=== PATIENT | female | born 1950 | race Caucasian/White ===

== ENCOUNTER 2023-12-16 09:38 | Outpatient (CLI) | payer MEDICARE, OTHER | END 2023-12-16 23:59 | disposition home or self-care (01) | LOC: RAD 09:38 | PROVIDERS: ATTEND Internal Medicine Interventional Cardiology | DX: Z13.6 Encounter for screening for cardiovascular disorders (principal); E78.5 Hyperlipidemia, unspecified; R53.83 Other fatigue; I95.1 Orthostatic hypotension; D64.9 Anemia, unspecified | CPT/HCPCS: 75571 ==

== ENCOUNTER 2024-09-06 14:41 | Inpatient (IN) | payer MEDICARE, OTHER ==
[~2024-09-06] VITALS: Ht 165.1 cm; Wt 65.0 kg
--- NOTE | 2024-09-06 14:52 | Physician Documentation ---
History of Present Illness ~ Chief Complaint: Weakness Stated Complaint: UPPER GI BLEED Time Seen by MD: 14:44 OK to notify your PCP?: No Source: patient (12), RN/MD (Transferring facility) HPI Patient is sent to us as a transfer from [facility] in [facility]. She had presented there with a complaint of black stool starting a couple of days ago, not accompanied by any abdominal pain, although the patient does feel fatigued and weak. She had reported some orthostatic dizziness and an episode of vomiting yesterday which did not contain any hematemesis. Patient does have a history of GI bleed a couple of times in the past and has had both endoscopy and capsular endoscopy, I am unaware of the outcome, but the patient's GI bleed was felt to be secondary to anti-inflammatory intake. She no longer takes NSAIDs, and is no longer taking a PPI. She also notes that she had a hysterectomy about six weeks ago. At the facility she was found to have a hemoglobin of 5.9 as well as melena on examination. She has received Protonix and 2 units packed red cells prior to her arrival here, which improved her heart rate and blood pressure which had been a little soft on her arrival. Patient transferred because they have no GI capability, and can undergo endoscopy at our facility. Labs from the prior facility: WBC 6.2 hemoglobin 5.9 hematocrit 16.8 platelets 200 Sodium 141, potassium 3.7, chloride 110, CO2 18, glucose 118, creatinine 0.65, total bilirubin 0.28 PT INR 12.8/1 Medication Reconciliation Allergies: Coded Allergies: NSAIDS (Non-Steroidal Anti-Inflamma (Verified Allergy, Severe, LOWER GI BLEED, 09/06/24) Miscellaneous Medications Home Med List (No Home Medications), (Reported) Past Medical History Past Medical History: GI Bleed Smoking Status: Never smoker Alcohol Use: Occasionally Drug Use: none Review of Systems All Other Systems at this time: Reviewed and Negative Physical Exam Physical Exam General: Pt is awake, alert, oriented x4 in no acute distress and well appearing. Head: Normocephalic and atraumatic. Eyes: Conjunctiva normal. ENT: Mucous membranes moist. Neck: Supple. Chest: Clear to auscultation bilaterally, without rales, rhonchi, or wheezes. There is no accessory muscle use or retractions. Cardiac: Regular rate and rhythm without murmurs, gallops or rubs. Palpation of the chest wall is normal. Abd: Soft, nondistended, nontender, with normoactive bowel sounds. No guarding or rebound. Rectal: Deferred as it was performed at the outside facility and melena was found according to the provider, with whom I spoke Extremities: Within normal limits without cyanosis, clubbing, or edema. Skin: Stokes, warm and dry with no significant rash appreciated. Neuro: Cranial nerves II-XII grossly intact. The gait is normal. Progress Results/Orders Results/Orders Orders - JO GASTON MD Page Hospitalist (09/06/24 15:01) Fill Out Med Reconciliation (09/06/24 15:01) Completed Orders - JO GASTON MD Type And Screen (09/06/24 14:49) Cbc/Diff (09/06/24 14:49) Medications Received in ER Medications (Trade) Dose Ordered Sig/Selin Route PRN Reason Start Time Stop Time Status Last Admin Dose Admin Sodium Chloride 1,000 ml @ 100 mls/hr Q10H IV 09/06/24 16:10 09/06/24 16:25 100 MLS/HR Vital Signs 09/06/24 09/06/24 14:55 14:59 Temp 98.5 Pulse 64 Resp 14 18 B/P (MAP) 110/67 Pulse Ox 98 O2 Flow Rate 0 Laboratory Tests Test 09/06/24 15:56 White Blood Count 5.1 Red Blood Count 2.56 L Hemoglobin 8.5 L Hematocrit 24.7 L Mean Corpuscular Volume 96.7 Mean Corpuscular Hemoglobin 33.2 H Mean Corpuscular Hemoglobin Concent 34.3 Red Cell Distribution Width 13.8 Platelet Count 149 Mean Platelet Volume 8.0 Neutrophils (%) (Auto) 62.8 Lymphocytes (%) (Auto) 29.8 Monocytes (%) (Auto) 5.3 Eosinophils (%) (Auto) 1.5 Basophils (%) (Auto) 0.6 Neutrophils # (Auto) 3.2 Lymphocytes # (Auto) 1.5 Monocytes # (Auto) 0.3 Eosinophils # (Auto) 0.1 Basophils # (Auto) 0.0 CBC Comment Consults/PCP Consults/PCP : Time Call Requested: 15:01 Consult Reason/Comments: Hospitalist Additional Comment 15:12 Case d/w Dr. Wilkinson, who will admit, and who agrees to call Dr. Angeles from GI for consultation Medical Decision Making Additional Information Patient with a history of recurrent GI bleed, no longer on NSAIDs but with rece nt physiologic stress from surgery. Presumed to be upper GI source as she is having melena. Vital signs are stable at this time, we will recheck hemoglobin and type and screen, admit to hospitalist service for further evaluation and management and GI consultation for endoscopy. Departure Time of Disposition: 15:00 Admitted to Inpatient Unit: yes, to hospitalist Impression: Primary Impression: Upper GI hemorrhage Additional Impression: Anemia Qualified Codes: D64.9 - Anemia, unspecified Condition: Fair Referrals: NO PRIMARY CARE PROVIDER (PCP) Education Educated: Patient Educated regarding: diagnosis, treatment Signature Scribe Signature: Attestation: JO GASTON MD Sep 06, 2024 14:52
[2024-09-06] MEDS ORDERED: NO HOME MEDS (15:06)
[2024-09-06 16:06] LABS: MEAN PLATELET VOLUME 8.0 FL (7.4-10.4); RED CELL DISTRIBUTION WIDTH 13.8 % (11.5-14.5)
[2024-09-06] MEDS ORDERED: magnesium sulf-water 2g/50mL 50 ML IV PRN (16:10)
[2024-09-06] MEDS ORDERED: ondansetron/PF 4mg/2ml inj IV PRN (16:10)
[2024-09-06] MEDS ORDERED: potassium Cl 20 mEq SR tablet PO PRN (16:10)
[2024-09-06] MEDS ORDERED: potassium Cl 40MEQ/1/2NS 520ml 520 ML IV PRN (16:10)
[2024-09-06] MEDS ORDERED: magnesium Cl slow-release 64mg tablet PO PRN (16:10)
[2024-09-06] MEDS ORDERED: magnesium sulf-water 4G/100mL 100 ML IV PRN (16:10)
[2024-09-06] MEDS: normal saline 1000ml 1,000 ML IV SCH (16:25)
--- NOTE | 2024-09-06 18:28 | HISTORY AND PHYSICAL ---
History & Physical Providers to CC ~ History of Present Illness Reason for Admit\Complaint: Black stools History of Present Illness Patient is a 74 years old female who has been taken has a transfer from [facility] in [place] where she initially presented with complain of black stool x2 days. Patient states to me that it started yesterday when she noted some black stool and once again this morning she had melena. Patient states she has been feeling weak. She reported she had similar issues in 2020 and at that time she was having NSAIDs and had a colonoscopy endoscopy and a capsule endoscopy. Since then she has not been using any NSAIDs. She denies having any nausea vomiting or abdominal pain. Patient denies having any fever chills dysuria frequency urgency hematuria or bright red blood per rectum. She denies having any focal neurological symptoms In the ER patient is noted to have a hemoglobin of 5.9. She has been transfused 2 units of packed RBCs. Patient is being admitted for further evaluation and treatment. Allergies: Coded Allergies: NSAIDS (Non-Steroidal Anti-Inflamma (Verified Allergy, Severe, LOWER GI BLEED, 09/06/24) Home Medications Home Medications Active Reported No Home Medications (Home Med List) Each Past Medical History Past Medical History Patient reports none except history of GI bleed due to NSAID as noted above Past Surgical History Surgical History Comment None Family History Family History: Family history was reviewed; no changes noted. Past Social History Social History Comment Patient reports she is a light drinker, does not smoke or do any drugs. Health Maintenance Health Maintenance Not current on her immunizations ROS ROS All other systems are reviewed and are negative except for as mentioned in HPI. Exam Vitals: Vital Signs Date Time Temp Pulse Resp B/P (MAP) Pulse Ox O2 Delivery O2 Flow Rate FiO2 09/06/24 16:24 65 14 115/87 (96) 100 0 09/06/24 14:55 98.5 General: Awake alert cooperative in no acute distress HEENT: Normocephalic atraumatic pupils round reactive to light and accommodation, extraocular movements intact, sclera anicteric, conjunctiva pinkish, moist oral mucosa, no rash or ulcers. Neck: Supple, no JVD, trachea midline, no lymphadenopathy. Chest: Clear to auscultation, no wheezes crackles or rhonchi. Cardiovascular: Regular rate rhythm, no murmur gallop or rub. Abdomen: Soft nontender, no organomegaly. Extremities: No cyanosis clubbing or edema. Central Nervous System: Nonfocal. Moves all four extremities Musculoskeletal: No joint swelling or deformities noted. Skin: No rash or ulcers noted. Diagnostic Data Last Recorded Lab Results: 09/06/24 1556 Additional Plan Patient is a 74 years old female presented to the ER for evaluation of melena. 1. Melena: Patient reports she has not been using any NSAIDs. We will start her on IV Protonix. Requested GI consultation by Dr. Toscano. 2. Anemia due to chronic GI bleed: Patient has been transfused 2 units of packed RBCs. We will continue monitor H and HP 3. Code status: She wishes to be full code 4. GI prophylaxis: Protonix as noted above 5. DVT prophylaxis: SCDs and early ambulation. Avoid pharmacological anticoagulation due to GI bleed. Date of Service: Sep 06, 2024 Billing Provider: RADHA JOHNSTON MD Common Visit Codes: 44835-[id number] INP/OBS CARE (MOD) RADHA JOHNSTON MD Sep 06, 2024 18:28
[2024-09-06] MEDS: K and/or MAG REPLACEMENT MC SCH (20:00)
[2024-09-06 20:56] VITALS: RESP 15; O2SAT 100
[2024-09-06 21:22] VITALS: BP 92/55; PULSE 77; RESP 15; TEMP 97.1; O2SAT 100
[2024-09-06 22:00] VITALS: BP 100/60; PULSE 69; RESP 15; TEMP 97; O2SAT 98
[2024-09-06 23:05] VITALS: BP 100/60; PULSE 69; RESP 15; TEMP 97; O2SAT 98
[2024-09-07] VITALS (16 sets, daily range): BP systolic 76–92; BP diastolic 30–55; PULSE 65–85; RESP 12–20; TEMP 97.1–98; O2SAT 94–100
[2024-09-07 06:47] LABS: MEAN PLATELET VOLUME 8.1 FL (7.4-10.4); RED CELL DISTRIBUTION WIDTH 13.9 % (11.5-14.5)
[2024-09-07 07:03] LABS: CREATININE 0.53 MG/DL (0.40-0.90); TOTAL CARBON DIOXIDE 24.1 MMOL/L (24-32); eCRCL 85 ML/MIN; eGFR > 90 ML/MIN
--- NOTE | 2024-09-07 08:56 | PROGRESS NOTE ---
Daily Progress Note Providers to CC ~ Antibiotic Timeout Antibiotic Ordered?: No Subjective Patient continues to feel weak. Objective Vital Signs Date Time Temp Pulse Resp B/P (MAP) Pulse Ox O2 Delivery O2 Flow Rate FiO2 09/07/24 06:00 98.0 65 16 90/50 (63) 95 Room Air 09/06/24 16:24 0 Result Diagram: 09/07/24 0528 09/07/24 05 General: Generalized weakness, A&Ox 3, NAD HEENT: Normocephalic, PERRLA Neck: Supple, trachea midline, no JVD Chest: Clear to auscultation bilaterally Cardiovascular: RRR, S1&S2 GI: Soft and nontender Extremities: No cyanosis/clubbing/or edema PATIENT SCHEDULER: CN II-XII intact, no focal deficits Musculoskeletal: No joint swelling or deformities Other Results Medications reviewed Problem\Assessment\Plan Patient is a 74 years old female presented to the ER for evaluation of melena. Patient reports she has not been using any NSAIDs. * GIB: -transfused 2 units of PRBCs. Consulted GI Dr. Hollins . Continue monitor H/H * Hypotension- bolus fluids for hypotension * Code status: Full Code * GI prophylaxis: Protonix * Hypokalemia: Replace per protocol * DVT prophylaxis: SCDs Date of Service: Sep 07, 2024 Billing Provider: RADHA JOHNSTON MD Common Visit Codes: 94035-[id number] INP/OBS CARE(HIGH) RADHA JOHNSTON MD Sep 07, 2024 08:56
[2024-09-07] MEDS: potassium Cl 20 mEq SR tablet PO PRN (08:57)
[2024-09-07] MEDS ORDERED: LIDOcaine 2% (20mg/ml) 5ml vial ONE (10:37)
[2024-09-07] MEDS: PEG 3350/Na sulf,bicarb,Cl/KCl oral sol 4 liter bottle PO ONE (15:17)
[2024-09-08] VITALS (20 sets, daily range): BP systolic 85–106; BP diastolic 33–60; PULSE 61–83; RESP 11–20; TEMP 96.4–98.8; O2SAT 95–100
[2024-09-08 05:51] LABS: MEAN PLATELET VOLUME 8.1 FL (7.4-10.4); RED CELL DISTRIBUTION WIDTH 14.5 % (11.5-14.5)
[2024-09-08 06:18] LABS: CREATININE 0.37 MG/DL (0.40-0.90); TOTAL CARBON DIOXIDE 20.7 MMOL/L (24-32); eCRCL 122 ML/MIN; eGFR > 90 ML/MIN
[2024-09-08] MEDS: midodrine 5mg tablet PO SCH (10:19)
--- NOTE | 2024-09-08 10:56 | PROGRESS NOTE ---
Daily Progress Note Providers to CC ~ Antibiotic Timeout Antibiotic Ordered?: No Subjective No acute events overnight. Patient examined at bedside. No new complaints, not in acute distress. Patient denies chest pain, sob, palpitations, abdominal pain, n/v/d. Colonoscopy today. Hypotensive, labs notable for Hgb 6.8g/dL, received 1 unit PRBC today. 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 Patient reports she has not been using any NSAIDs. Assessment GIB Normocytic anemia Hypotension -transfused 2 units of PRBCs. Consulted GI Dr. Hollins -09/08: EGD yesterday without active bleeding, colonoscopy today without active bleeding, Hgb 6.8 Plan -09/08: 1 additional unit PRBC today, colonoscopy today, midodrine and bolus fluids for hypotension -follow repeat H/H Code status: Full Code GI prophylaxis: Protonix DVT prophylaxis: SCDs Date of Service: Sep 08, 2024 Billing Provider: KARLIE GARCES Common Visit Codes: [id number] INP/OBS CARE(HIGH) KARLIE GARCES Sep 08, 2024 10:56
[2024-09-08] MEDS: normal saline 500ml IV soln 500 ML IV ONE (11:00)
[2024-09-08] MEDS ORDERED: propofol inj 20 ML IV ONE ×2 (11:57)
[2024-09-08 16:05] LABS: MEAN PLATELET VOLUME 7.8 FL (7.4-10.4); RED CELL DISTRIBUTION WIDTH 15.1 % (11.5-14.5)
--- NOTE | 2024-09-08 18:22 | PATHOLOGY REPORT ---
[facility] [address] [place] [address] SURGICAL PATHOLOGY REPORT CaseNumber: [id number] Surgeon:Sukhdeep Hollins M.D. CLINICAL INFORMATION CLINICAL INFORMATION: Melena. DIAGNOSIS DIAGNOSIS: A.STOMACH, ANTRUM; BIOPSY - MILD CHRONIC INFLAMMATION. - NEGATIVE FOR INTESTINAL METAPLASIA. - NEGATIVE FOR H. PYLORI BY IMMUNOPEROXIDASE STUDY. - NEGATIVE FOR DYSPLASIA/NEOPLASIA. DIAGNOSIS: B.SMALL BOWEL, SECOND PORTION DUODENUM; BIOPSY - NO SIGNIFICANT HISTOLOGIC ABNORMALITY. MICROSCOPIC DESCRIPTION A. STOMACH, ANTRUM MICROSCOPIC DESCRIPTION: One H&E stained slide from part A is examined. Present are two pieces of gas tric antral mucosa. One piece has some specialized glands suggesting transitional zone. There is a mi ld chronic inflammatory infiltrate composed predominantly of lymphocytes. There is no significant act suad inflammation and no intestinal metaplasia by routine light microscopy. Immunoperoxidase study for H. pylori does not highlight organisms. There is no dysplasia/neoplasia. B. SMALL BOWEL, SECOND PORTION DUODENUM MICROSCOPIC DESCRIPTION: One slide from part B is examined. Present is small intestinal mucosa with n ormal villous architecture. The villi are tall and slender. There is no increased intraepithelial lym phocytes or collagen plate thickness. There is no active inflammation, granuloma, or neoplasia. (st) GROSS DESCRIPTION A. STOMACH, ANTRUM GROSS DESCRIPTION: Received in a container of formalin labeled with the patients name, number, and "a ntrum BX" are two pieces of justice tissue 0.3 and 0.4 cm. The specimen is entirely submitted as A1. The time at which the specimen was removed was 1055. The time at which the specimen was placed in formal in was 1056. (ohb) B. SMALL BOWEL, SECOND PORTION DUODENUM GROSS DESCRIPTION: Received in a container of formalin labeled with the patient's name, number, and " second portion of duodenum" are two pieces of justice tissue 0.1 and 0.2 cm. The specimen is entirely sub mitted as B1. The time at which the specimen was removed was 1054. The time at which the specimen was placed in formalin was 1054. (meb) Electronically signed by: Maxwell Callahan M.D. 09/08/2024 5:41:00 PM
[2024-09-09 05:47] LABS: MEAN PLATELET VOLUME 7.9 FL (7.4-10.4); RED CELL DISTRIBUTION WIDTH 15.1 % (11.5-14.5)
[2024-09-09 06:00] VITALS: BP 110/66; PULSE 65; RESP 14; TEMP 96.8; O2SAT 96
[2024-09-09 06:06] LABS: CREATININE 0.56 MG/DL (0.40-0.90); TOTAL CARBON DIOXIDE 24.7 MMOL/L (24-32); eCRCL 81 ML/MIN; eGFR > 90 ML/MIN
[2024-09-09] MEDS ORDERED: PANT40TA54 PO (07:03)
[2024-09-09] MEDS ORDERED: MIDO5TAB4 PO (07:03)
[2024-09-09 08:00] VITALS: RESP 14; O2SAT 96
[2024-09-09] MEDS ORDERED: FER325T PO (08:54)
[2024-09-09 09:50] LABS: % IRON SATURATION 12 % (11-46)
[2024-09-09 10:00] VITALS: BP 98/57; PULSE 80; RESP 16; TEMP 98.2; O2SAT 96
--- NOTE | 2024-09-09 11:07 | PATHOLOGY REPORT ---
[facility] [address] [place] [address] SURGICAL PATHOLOGY REPORT CaseNumber: [id number] Surgeon:uSkhdeep Hollins M.D. CLINICAL INFORMATION CLINICAL INFORMATION: Melena, iron deficiency anemia secondary to chronic blood loss, EGD non-diagnos tic. DIAGNOSIS DIAGNOSIS: A.POLYP, ASCENDING COLON, BIOPSY - BENIGN HYPERPLASTIC POLYP DIAGNOSIS: B.POLYP, SIGMOID COLON, BIOPSIES X 3 - BENIGN HYPERPLASTIC POLYP MICROSCOPIC DESCRIPTION A. POLYP, ASCENDING COLON, BIOPSY MICROSCOPIC DESCRIPTION: Reviewed is a single H&E-stained slide showing sections and levels of a april ected polypoid portion of colonic mucosa involved by hyperplastic changes. No serrated, dysplastic, or neoplastic features are identified. B. POLYP, SIGMOID COLON, BIOPSIES X 3 MICROSCOPIC DESCRIPTION: Reviewed is a single H&E-stained slide showing serial sections and levels of three polypoid fragments of colonic mucosa. There are areas involved by hyperplastic changes. There are no dysplastic or neoplastic features. GROSS DESCRIPTION A. POLYP, ASCENDING COLON, BIOPSY GROSS DESCRIPTION: Received in a container of formalin labeled with the patient's name, number, and " descending colon polyp" is a 1.1 x 0.9 x 0.1 cm piece of justice tissue. The specimen is sectioned. The specimen is entirely submitted as A1. The time at which the specimen was removed was 1159. The time a t which the specimen was placed in formalin was 1200. B. POLYP, SIGMOID COLON, BIOPSIES X 3 GROSS DESCRIPTION: Received in a container of formalin labeled with the patient's name, number, and " sigmoid polyp" are 3 irregularly shaped pieces of justice tissue 0.3-1.7 x 0.3 x 0.3. The specimen is ent irely submitted as B1. The time at which the specimen was removed was 1153. The time at which the spe cimen was placed in formalin was 1155. Electronically signed by: Jake Montenegro M.D. 09/09/2024 10:35:00 AM
--- NOTE | 2024-09-09 13:39 | DISCHARGE SUMMARY ---
Discharge Summary Providers to CC ~ Discharge Summary Admission Diagnosis: GIB, anemia Hospital Course DATE OF ADMISSION: 09/06/24 DATE OF DISCHARGE: 09/09/24 Discharge Diagnosis\\Comment: GIB NICK 2/2 GIB Normocytic anemia Hypotension Operations\\Procedures: EGD Colonoscopy Consultants: Neurosurgical Nurse Sukhdeep Bean Complications: None Condition on DC: Stable New Medications: Ferrous Sulfate (Ferrous Sulfate) 325 Mg (65 Mg Iron) Tablet 1 TAB PO DAILY for 90 Days, #90 TAB 0 Refills Pantoprazole Sodium (Pantoprazole Sodium) 40 Mg Tablet.dr 40 MG PO DAILY for 30 Days, #30 TAB.SR Midodrine HCl (Midodrine HCl) 5 Mg Tablet 10 MG PO TID@1000,1400,1800 for 30 Days, #90 TAB Continued Medications: Home Med List (No Home Medications) Each Discharge Summary: History of Present Illness From H&P: "Patient is a 74 years old female who has been taken has a transfer from [facility] in [place] where she initially presented with complain of black stool x2 days. Patient states to me that it started yesterday when she noted some black stool and once again this morning she had melena. Patient states she has been feeling weak. She reported she had similar issues in 2020 and at that time she was having NSAIDs and had a colonoscopy endoscopy and a capsule endoscopy. Since then she has not been using any NSAIDs. She denies having any nausea vomiting or abdominal pain. Patient denies having any fever chills dysuria frequency urgency hematuria or bright red blood per rectum. She denies having any focal neurological symptoms. In the ER patient is noted to have a hemoglobin of 5.9. She has been transfused 2 units of packed RBCs. Patient is being admitted for further evaluation and treatment." Hospital Course Case was consulted with GI Dr. Hollins and patient underwent EGD on 09/07/24 with findings of normal esophagus/stomach/duodenal bulb and second portion of the duodenum, without evidence of active bleeding and colonoscopy on 09/08/24 without evidence of active bleeding. Polyps in sigmoid colon and descending colon were biopsied. Serial hemogram indicated downtrend of Hgb to less than 7g/dL hence the patient received additional 1 unit of PRBC. Additional lab findings were consistent with iron-deficiency anemia. Hemolysis unlikely as t.bili is normal. Patient was treated with iron supplement. Patient did not experience further complications throughout the entire hospital stay and remained clinically and hemodynamically stable. Patient was seen and examined on the day of discharge. On day of discharge, vss and labs notable for uptrending H/H. All labs, diagnostic workups, discharge plan discussed with patient in details during visit before discharge. All questions and concerns answered to the best of my professional knowledge. Patient is to be discharged to home to self and to follow-up with PCP, Dr. Hollins, and her management development specialist within 2 weeks. 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
== END 2024-09-09 13:06 | disposition home or self-care (01) | DRG 393 ==
LOC: ER 14:42 → ED HOLD 16:11 → ORTHO 4S 19:15
PROVIDERS: ADMIT Internal Medicine; ATTEND Internal Medicine
PROC: 0DB68ZX Excision of Stomach, Via Natural or Artificial Opening Endoscopic, Diagnostic (ICD-10-PCS; 2024-09-07)
PROC: 0DB98ZX Excision of Duodenum, Via Natural or Artificial Opening Endoscopic, Diagnostic (ICD-10-PCS; principal; 2024-09-07 10:37)
PROC: 0DBM8ZZ Excision of Descending Colon, Via Natural or Artificial Opening Endoscopic (ICD-10-PCS; 2024-09-08)
PROC: 0DBN8ZZ Excision of Sigmoid Colon, Via Natural or Artificial Opening Endoscopic (ICD-10-PCS; 2024-09-08)
PROC: 30233N1 Transfusion of Nonautologous Red Blood Cells into Peripheral Vein, Percutaneous Approach (ICD-10-PCS; 2024-09-08)
DX: K63.5 Polyp of colon (principal); E43 Unspecified severe protein-calorie malnutrition; D62 Acute posthemorrhagic anemia; D12.5 Benign neoplasm of sigmoid colon; D12.4 Benign neoplasm of descending colon; I95.9 Hypotension, unspecified; Z88.6 Allergy status to analgesic agent; Z68.23 Body mass index [BMI] 23.0-23.9, adult
CPT/HCPCS: 36415; 36430; 43239; 45385; 80048; 82247; 82728; 83540; 83550; 83735; 85025; 85027; 86885; 86900; 86901; 86920; 87081; 97161; 97530; 99285; A4620; C1889; G0378; J2003; J2470; J2704; J3490; J7030; J7040; P9016

== ENCOUNTER 2024-10-14 10:27 | Inpatient (IN) | payer MEDICARE, OTHER ==
[~2024-10-14] VITALS: Ht 160 cm; Wt 59.0 kg
[~2024-10-14 10:27] MED LIST: FER325T PO; MIDO5TAB4 PO; NO HOME MEDS; PANT40TA54 PO
--- NOTE | 2024-10-14 10:32 | Physician Documentation ---
History of Present Illness ~ Stated Complaint: GI BLEED Time Seen by MD: 10:32 Source: patient, EMS, EMS notes reviewed, old records Mode of Arrival: EMS Exam Limitations: no limitations HPI Chief Complaint: Caveat: Independent Historians: History of Present Illness: Review of systems: All systems were reviewed and are negative except for what is indicated in the history of present illness. Past Medical History: Past Surgical History: Social History: Medications: Reviewed as documented Nursing Notes Allergies: Reviewed as documented in Nursing Notes Medication Reconciliation Allergies: Coded Allergies: NSAIDS (Non-Steroidal Anti-Inflamma (Verified Allergy, Severe, LOWER GI BLEED, 10/14/24) Scheduled Ferrous Sulfate (Ferrous Sulfate), 1 TAB PO DAILY Pantoprazole Sodium (Pantoprazole Sodium), 40 MG PO DAILY Discontinued Medications Home Med List (No Home Medications), (Reported) Discontinued Reason: patient no longer taking Midodrine HCl (Midodrine HCl), 10 MG PO TID@1000,1400,1800 Discontinued Reason: patient no longer taking Past Medical History Past Medical History: GI Bleed Alcohol Use: Occasionally Drug Use: none Review of Systems All Other Systems at this time: Reviewed and Negative ROS Patient denies any other acute symptoms other than above. All other systems are negative Physical Exam Vital Signs: RN Vital Signs have been reviewed: Yes Pulse Oximetry Reflects: adequate oxygenation Physical Exam General Appearance: No distress HEENT: Normal OP, moist oral mucosa, PERRL, EOMI Neck: supple, normal ROM, trachea midline Pulmonary: No respiratory distress, CTA, BS equal Cardiac: RRR, no murmur, rub or gallop, GI: nondistended, soft, nontender, normal bowel sounds, no guarding, no rebound Rectal: Extremities: normal ROM, no swelling, non-tender Skin: intact, dry, warm, no rashes Neuro: AAOx3, speech is clear, no focal motor weakness Psych: normal affect, good eye contact, no apparent hallucination, normal speech Progress Results/Orders Results/Orders Orders - MICAH MAZARIEGOS MD Urinalysis, Cult If Indicated (10/14/24 10:32) Type And Screen (10/14/24 10:32) Nothing By Mouth (10/14/24 Dinner) Monitor (10/14/24 10:32) Saline Lock (10/14/24 10:32) Iv Ppi (10/14/24 10:32) 2 Large Bore Ivs (10/14/24 10:32) Pantoprazole 40mg/Ns 100ml Bag (Protonix (10/14/24 10:35) Page Hospitalist (10/14/24 10:50) Fill Out Med Reconciliation (10/14/24 10:50) Completed Orders - MICAH MAZARIEGOS MD Cbc/Diff (10/14/24 10:32) PTT (10/14/24 10:32) Pt Inr (10/14/24 10:32) Electrocardiogram (10/14/24 10:32) Pantoprazole 40mg Iv (Protonix 40mg Iv) (10/14/24 10:35) Pantoprazole 40mg Iv (Protonix 40mg Iv) (10/14/24 10:45) Ringers Solution, Lacted (Lactated Ringe (10/14/24 11:05) CMP (10/14/24 11:29) Medications Received in ER Medications (Trade) Dose Ordered Sig/Selin Route PRN Reason Start Time Stop Time Status Last Admin Dose Admin Pantoprazole Sodium 100 ml @ 20 mls/hr Q5H IV 10/14/24 10:35 10/14/24 11:38 20 MLS/HR (Protonix 40mg IV) 80 mg ONCE ONCE IV 10/14/24 10:45 10/14/24 10:46 DC 10/14/24 11:39 80 MG (lactated ringers solution) 1,000 ml ONCE ONCE IV 10/14/24 11:05 10/14/24 11:06 DC 10/14/24 11:43 1,000 ML Vital Signs 10/14/24 10/14/24 10:34 10:45 Temp 97.6 Pulse 74 Resp 15 16 B/P (MAP) 104/60 Pulse Ox 98 O2 Flow Rate 0 Laboratory Tests Test 10/14/24 10:49 White Blood Count 3.4 L Red Blood Count 2.79 L Hemoglobin 8.9 L Hematocrit 26.4 L Mean Corpuscular Volume 94.9 Mean Corpuscular Hemoglobin 31.9 H Mean Corpuscular Hemoglobin Concent 33.6 Red Cell Distribution Width 16.8 H Platelet Count 183 Mean Platelet Volume 6.9 L Neutrophils (%) (Auto) 62.0 Lymphocytes (%) (Auto) 25.2 Monocytes (%) (Auto) 8.1 Eosinophils (%) (Auto) 3.3 Basophils (%) (Auto) 1.4 H Neutrophils # (Auto) 2.1 Lymphocytes # (Auto) 0.9 L Monocytes # (Auto) 0.3 Eosinophils # (Auto) 0.1 Basophils # (Auto) 0.0 CBC Comment Prothrombin Time 9.8 INR International Normalized Ratio 1.0 Activated Partial Thromboplast Time 25 Coagulation Comments Sodium Level 141 Potassium Level 3.9 Chloride Level 108 H Carbon Dioxide Level 27.6 Anion Gap 5 L Blood Urea Nitrogen 31 H Creatinine 0.55 Estimated GFR/1.73 m2 > 90 BUN/Creatinine Ratio 56.4 H Glucose Level 89 Calcium Level 8.1 L Total Bilirubin 1.2 H Aspartate Amino Transf (AST/SGOT) 16 Alanine Aminotransferase (ALT/SGPT) 26 Alkaline Phosphatase 39 L Total Protein 4.5 L Albumin 2.6 L Globulin 1.9 L Albumin/Globulin Ratio 1.4 Chemistry Comments Medical Decision Making Findings Differential diagnosis includes but is not limited to: Gastric/peptic ulcer, duodenal ulcer, gastritis, AVM, upper GI bleed EKG independent interpretation: Performed at 10:40 a.m.. Normal sinus rhythm, heart rate 66, normal axis, Q-waves in V1 through V3 and lead three, normal ST segments Laboratory data independent interpretation: CBC: Moderate anemia with a hemoglobin of 8.9 CMP: BUN ELEVATED AT 31, CREATININE NORMAL AT 0.55, TOTAL BILIRUBIN JUST ABOVE NORMAL AT 1.2, NORMAL AST 16, NORMAL ALT 26, Coags: Normal Emergency department course/medical decision-making: Patient presents with a history of chronic iron-deficiency anemia and repeated or continued upper GI bleed for at least a month. Patient's presents now with a blood pressure that is in the 90s systolic. Patient has not received any fluids at [facility]. Patient will be given 1 L of LR. Patient's hemoglobin has improved to 8.9. Patient will require admission for endoscopy. Consultation/communications: 11:30 a.m.: Case discussed with our hospitalist Dr. Duran. Gastroenterology, Dr. Angeles is aware of the patient in and we will see her. Departure Time of Disposition: 10:51 Disposition: 09 ADMITTED INPATIENT Admitted to Inpatient Unit: to hospitalist Admission Level of Care: Med/Surg with Tele Impression: Primary Impression: Upper GI hemorrhage Condition: Guarded Education Educated: Patient Educated regarding: diagnosis, treatment Signature Scribe Signature: No Scribe Attestation: No scribe MICAH MAZARIEGOS MD Oct 14, 2024 10:32
[2024-10-14] MEDS ORDERED: pantoprazole 40mg IV 80 MG in normal saline 100ml IV soln 100 ML IV ONE (10:35)
--- NOTE | 2024-10-14 10:42 | ELECTROCARDIOGRAPH REPORT ---
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
[2024-10-14 10:59] LABS: MEAN PLATELET VOLUME 6.9 FL (7.4-10.4); RED CELL DISTRIBUTION WIDTH 16.8 % (11.5-14.5)
[2024-10-14 11:31] LABS: APTT 25 SECONDS (22-32); INR 1.0 INR
[2024-10-14] MEDS: pantoprazole 40MG/NS 100ML BAG 100 ML IV SCH ×2 (11:38→17:45)
[2024-10-14] MEDS: ringers solution, lactated 1000ml IV soln IV ONE (11:43)
[2024-10-14 11:51] LABS: CREATININE 0.55 MG/DL (0.40-0.90); TOTAL CARBON DIOXIDE 27.6 MMOL/L (24-32); eCRCL 75 ML/MIN; eGFR > 90 ML/MIN
[2024-10-14] MEDS ORDERED: mag hydrox/Alum hydrox/simeth 30ml oral suspension PO PRN (12:40)
[2024-10-14] MEDS ORDERED: potassium Cl 40MEQ/1/2NS 520ml 520 ML IV PRN (12:40)
[2024-10-14] MEDS ORDERED: ondansetron/PF 4mg/2ml inj IV PRN (12:40)
[2024-10-14] MEDS ORDERED: magnesium sulf-water 4G/100mL 100 ML IV PRN (12:40)
[2024-10-14] MEDS ORDERED: magnesium sulf-water 2g/50mL 50 ML IV PRN (12:40)
[2024-10-14] MEDS ORDERED: magnesium Cl slow-release 64mg tablet PO PRN (12:40)
[2024-10-14] MEDS ORDERED: magnesium hydroxide 30ml (MOM) UD suspension PO PRN (12:40)
[2024-10-14] MEDS ORDERED: potassium Cl 20 mEq SR tablet PO PRN ×2 (12:40)
--- NOTE | 2024-10-14 13:12 | CONSULTATION REPORT - RESIDENT ---
Consult Providers to CC Resident Creating Document: VITO VERGARA RES History of Present Illness Reason for Admit\Complaint: melena History of Present Illness A 74 yr old patient with a previous hopitalization on September 06 for melena presented to the ED with complaints of black coloured stool since 1 month. She states that she has been having dark tarry sticky stools and has required many PRBC transfusions for anemia. She has been on Protonix and iron tablets for the past month and has been taking electrolyte drinks. She reports taking Hydrochloric acid supplements with food since 3 months which was recommended by her real estate asset manager as she was told that she hasn't been absorbing food properly. She denies having any abdominal pain. She reports having good appetite but lost 6 pounds in the last month and she attributes it to GI blood loss. She denies having fever and chills, nausea and vomiting, hematemesis and hematochezia. She claims that she had endoscopy and colonoscopy in her previous hospitalization in September but there was no evidence of active bleeding. She reported she had similar issues in 2021 and at that time she was having NSAIDs and had a colonoscopy endoscopy and a capsule endoscopy. She claims that she started getting GI bleed after using ibuprofen in 2021 for shoulder pain. Allergies: Coded Allergies: NSAIDS (Non-Steroidal Anti-Inflamma (Verified Allergy, Severe, LOWER GI BLEED, 10/14/24) Home Medications Home Medications Active Ferrous Sulfate 325 Mg (65 Mg Iron) Tablet 1 Tab PO DAILY 90 Days Pantoprazole Sodium 40 Mg Tablet.dr 40 Mg PO DAILY 30 Days Past Medical History Past Medical History No significant past medical history Past Surgical History Surgical History Comment Hysterectomy Past Social History Social History Comment She denies smoking. She states that she drinks alcohol occasionally and her last drink was a month ago. she stated that she used marijuana 40 years back but denied continuing it. ROS ROS Constitutional: No fever, dizziness, weakness. HEENT: No blurring of the vision, No sore throat, epistaxis, tinnitus Cardiovascular: No chest pain/discomfort, palpitations, syncope. No pedal edema Respiratory: No sob, cough,, hemoptysis Gastrointestinal: Melena, no nausea, vomiting, abdominal pain, no constipation Genitourinary: No frquency, urgency, incontinence, nocturia. No dysuria, hematuria Musculoskeletal: No arthralgia, myalgia Endocrine: No fatigue, polydipsia, polyuria. No heat or cold intolerance Neurologic: No headache, vertigo. No weakness, numbness or tingling of extremities Psychiatric: No hallucinations/delusions, no anhedonia, no suicidal ideation\ Hematologic: No bleeding or bruises Exam Vitals: Vital Signs Date Time Temp Pulse Resp B/P (MAP) Pulse Ox O2 Delivery O2 Flow Rate FiO2 10/14/24 12:12 69 12 100/64 (76) 97 10/14/24 10:34 97.6 0 General: Alert, Awake,Oriented to time, person and place, not distressed HEENT: Normocephalic, PERRLA, Pale conjunctiva Neck: Supple, trachea midline, no JVD Chest: Clear to auscultation bilaterally Cardiovascular: RRR, S1&S2 Abdomen: soft, no tenderness, no organomegaly, bowel sounds heard Extremities: No cyanosis/clubbing/or edema Central Nervous System: CN II-XII intact, no focal deficits Musculoskeletal: No paraspinal muscle tenderness, no muscle spasm Skin: Warm and intact Diagnostic Data Last Recorded Lab Results: 10/14/24 1049 10/14/24 1049 Diagnostic Data: Laboratory Tests Test 10/14/24 10:49 Prothrombin Time 9.8 SECONDS (9.0-12.0) INR International Normalized Ratio 1.0 INR Activated Partial Thromboplast Time 25 SECONDS (22-32) Coagulation Comments Additional Plan Upper GI bleed Severe normocytic anemia Differential diagnosis Peptic ulcer Angiodysplasia rule out neoplastic process Hb-8.9, MCV-94.9 Plan: Continue i.v Pantoprazole sodium Monitor H& H Start blood transfusion if Hb drops below 7 Clear liquid diet NPO from midnight EGD and will do intervention if necessary. The need for EGD, its benefits and complications and the need for surgical intervention in the event of any complication during EGD were explained. She understands and wishes to proceed further. Vito Vergara MD Internal Medicine Resident, PGY-1 Date of Service: Oct 14, 2024 Billing Provider: OLGA LIDIA TRAORE MD, PREETHI, RES Oct 14, 2024 13:12
--- NOTE | 2024-10-14 13:46 | RADIOLOGY REPORT ---
Exam: CT CT CHEST ABDOMEN PELVIS History: posthemorragic anemia; diverticulosis; CP Comparison Study: None Technique: Multidetector spiral CT of the chest, abdomen and pelvis was performed from lower neck to pubic symphysis. Intravenous contrast was administered during this examination. Portal venous imagin g was obtained. Axial, coronal and sagittal multiplanar reformats were performed by the technologist on a separate workstation. Radiation Dose : 1. Chest/Abdomen/Pelvis: CTDIvol 12.5 mGy, DLP 810.8 mGy*cm. Findings: Lower neck: Normal thyroid. Lungs: Dependent atelectasis. Heart/Vascular Structures: Cardiomegaly. Coronary artery calcifications. Vascular calcifications of t he aorta. Small pericardial effusion. Lymph Nodes: No adenopathy Pleura: No pleural effusion or significant pneumothorax. Liver: The liver is normal in size. No focal lesions. Normal hepatic vascular enhancement. Gallbladder and Biliary Tree: Unremarkable Spleen: Unremarkable Pancreas: The pancreas is normal in appearance without focal lesions or abnormal enhancement. Adrenal Glands: Unremarkable Kidneys: Kidneys demonstrate normal symmetric enhancement without focal lesions, calculi or hydroneph rosis. Bladder: Unremarkable Bowel: The stomach is grossly normal in appearance. Moderate colonic stool. The appendix is not visua lized; however, no secondary findings of acute appendicitis identified. Ascites: Absent Lymphadenopathy: No mesenteric, retroperitoneal or periportal lymphadenopathy. Abdominal Wall and Mesentery: Unremarkable. Vasculature: The visualized abdominal aorta is normal in size and caliber. Abdominal and pelvic vess els demonstrate normal enhancement. Pelvic Organs: Unremarkable Musculoskeletal: No aggressive focal bony lesions, acute fractures or dislocation. Bilateral hip arth roplasty. IMPRESSION: Moderate volume diffuse colonic stool. Cardiomegaly. Small pericardial effusion.
[2024-10-14 14:05] LABS: LEUKOCYTE ESTERASE ,URINE SMALL (Neg); NITRITES, URINE NEGATIVE (Neg); OCCULT BLOOD,URINE TRACE-INTACT (Neg)
[2024-10-14 14:10] LABS: UA COLLECTION TYPE URINAL
[2024-10-14 14:13] LABS: WBC CLUMPS,URINE MODERATE /HPF (NEGATIVE)
[2024-10-14 14:14] LABS: SQUAMOUS EPITHELIAL CELL,UR MODERATE /LPF (FEW)
[2024-10-14] MEDS ORDERED: HYDROcodone/acetaminophen 10/325mg tab PO PRN (16:30)
[2024-10-14] MEDS ORDERED: acetaminophen 650mg rectal suppository RC PRN (16:30)
[2024-10-14] MEDS ORDERED: bisacodyl 10mg suppository rectal RC PRN (16:30)
[2024-10-14] MEDS ORDERED: ondansetron 4mg rapidly disintigrating tab PO PRN (16:30)
[2024-10-14] MEDS ORDERED: HYDROcodone/acetaminophen 5mg/325mg tablet PO PRN (16:30)
[2024-10-14] MEDS: normal saline 1000ml 1,000 ML IV SCH (16:41)
--- NOTE | 2024-10-14 16:41 | HISTORY AND PHYSICAL ---
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 She states that she has been having dark tarry sticky stools and has required many PRBC transfusions for anemia. She has been on Protonix and iron tablets for the past month and has been taking electrolyte drinks.She reports taking Hydrochloric acid supplements with food since 3 months which was recommended by her behavioral geneticist as she was told that she hasn't been absorbing food properly.She denies having any abdominal pain. She reports having good appetite but lost 6 pounds in the last month and she attributes it to GI blood loss.She denies having fever and chills, nausea and vomiting, hematemesis and hematochezia.She claims that she had endoscopy and colonoscopy in her previous hospitalization in September but there was no evidence of active bleeding.S he reported she had similar issues in 2021 and at that time she was having NSAIDs and had a colonoscopy endoscopy and a capsule endoscopy. She claims that she started getting GI bleed after using ibuprofen in 2021 for shoulder pain. In emergency department she was evaluated by physician and GI doctor, diagnosed with upper GI bleed, post hemorrhagic anemia, hemoglobin 8.9, and hemoglobin on admission 5.5, transfuse 2 units of blood, decision was made to admit patient for further evaluation and treatment. Patient scheduled for gastroscopy in the morning. Allergies: Coded Allergies: NSAIDS (Non-Steroidal Anti-Inflamma (Verified Allergy, Severe, LOWER GI BLEED, 10/14/24) Active prescriptions I reviewed reconciled Home Medications Home Medications Active Ferrous Sulfate 325 Mg (65 Mg Iron) Tablet 1 Tab PO DAILY 90 Days Pantoprazole Sodium 40 Mg Tablet.dr 40 Mg PO DAILY 30 Days Past Medical History Past Medical History As in HPI Past Surgical History Surgical History Comment As in HPI Family History Family History: Family history was reviewed; no changes noted. Past Social History Social History Comment Deny illicit drug abuse tobacco alcohol use live with the family good social support Health Maintenance Health Maintenance Noncontributory ROS ROS Constitutional : no fever , no chills, or weakness. No diaphoresis. Allergic/Immunologic, no lymphadenopathy, no hives, no skin eruptions. Eyes, no recent visual changes, no eye pain, no photophobia. Ears, nose, mouth, throat, no sore throat, no nosebleed, no ear pain. Cardiovascular, no palpitations, skipped beats, chest pain, no peripheral edema, Respiratory, no dyspnea, orthopnea, cough, hemoptysis, chest wall pain. Gastrointestinal, no abdominal pain, nausea, vomiting, positive for melena and chronic constipation : no dysuria, hematuria, pelvic pain, urethral d/c. Endocrine, no polyuria, polydipsia, recent unintentional weight gain or loss. Hematologic/Lymphatic, no petechiae, no enlarged lymph nodes, no bone pain. Integumentary, no rash, no skin lesions, Musculoskeletal, no muscle aches, or pain, no muscle cramps, no recent change in gait Neurological, no dizziness, no headache, no syncope, no paresthesia. Psychiatric, no delusions, visual hallucinations, or hearing hallucinations. ROS - in rest is as in HPI. Exam Vitals: Vital Signs Date Time Temp Pulse Resp B/P (MAP) Pulse Ox O2 Delivery O2 Flow Rate FiO2 10/14/24 15:40 97.6 74 18 94/61 (72) 98 0 Vital signs, stable ,afebrile. Pulse Oximetry reflects adequate oxygenation. BMI is 23, weight 58 kg, low blood pressure noticed General: well developed, well nourished. Awake , alert, and oriented x4, resting comfortably in the bed, in no acute distress . Skin: Warm, dry, no pallor, no rash or petechiae. HEENT: Atraumatic, normocephalic, EOMI, anicteric sclera B; pink conjunctiva; PERRLA, normal oropharynx, moist oral and nasal mucosa. Tympanic membrane , nose , throat clear. Neck: Trachea midline. Supple, full range of motion, no JVD, bruit , hepatojugular reflex , lymphadenopathy or masses, or other lesions Cardiac: Regular rhythm, regular rate no murmurs, rubs, or gallops. Normal S1 and S2, no S3 noticed. PMI is normal. Respiratory: Equal breath sounds bilaterally, no tachypnea; lungs clear to auscultation bilaterally, no wheezing ,rub or rales, or crackles. Chest wall is symmetric and without deformity. No signs of trauma. Chest wall is nontender. No signs of respiratory distress. Resonance is normal upon percussion bilaterally. Gastrointestinal: Abdomen symmetric, non-distended, soft, non-tender, normal bowel sounds x4 quadrant, normoactive, no hepatosplenomegaly , no masses , no bruit, no flank pain bilaterally. No voluntary guarding, rebound, or rigidity. No tenderness to percussion. No pulsatile masses. Equal femoral pulses. No Farfan's sign or McBurney point tenderness. Back; no CVA tenderness bilaterally, no deformities. Neck and back are without deformity as well. No tenderness noted on palpation of the spinous processes. Spinous processes are midline. Cervical, thoracic, and lumbar paraspinal muscles are not tender and are without spasm. : Deferred by patient Musculoskeletal: Extremities, normal range of motion, non-tender, muscle strength 5/5 x 4. Negative Homans signs bilaterally on lower extremity. Distal pulses full symmetrical, no clubbing, cyanosis , edema. Neurological: Speech is clear, alert, and oriented x 4. No motor or sensory deficit, deep tendon reflexes normal, cerebellar intact. Cranial nerves II-XII intact. Psych: Alert and or appropriate, normal affect. Vascular: Good distal pulses, which are equal x4; capillary refill less than 2 seconds. Lymphatic, no lymphadenopathy. Diagnostic Data Last Recorded Lab Results: 10/14/24 1049 10/14/24 1049 Diagnostic Data: Laboratory Tests Test 10/14/24 10:49 Prothrombin Time 9.8 SECONDS (9.0-12.0) INR International Normalized Ratio 1.0 INR Activated Partial Thromboplast Time 25 SECONDS (22-32) Coagulation Comments Advance Care Planning Advanced Care plannin - 30 Minutes Additional Plan Assessment Upper GI bleeding, acute Melena Post hemorrhagic anemia hemoglobin 5.5 on admission, 8.9 now Hypovolemia Urinary tract infection History of chronic anemia on treatment with iron History of GI bleeding, and colon polyps x2 Chronic constipation in exacerbation Hypoalbuminemia Pericardial effusion small Cardiomegaly Plan IV fluids, keep patient euvolemic well hydrated, IV antibiotics Blood transfusion p.r.n. Additional lab work pending IV Protonix infusion Echocardiography pending PT evaluation and treatment Patient was evaluated by GI doctor, scheduled for EGD in the morning I reconciled home medications DVT gastropathy prophylaxis addressed Sepsis Screening Reassessment Date: Oct 14, 2024 Date of Service: Oct 14, 2024 Billing Provider: MU SPENCER MD Common Visit Codes: [id number] INP/OBS CARE(HIGH) Secondary Visit Codes: [id number] CARE PLAN 30 MINUTES MU SPENCER MD Oct 14, 2024 16:41
[2024-10-14] MEDS ORDERED: pantoprazole 40MG/NS 100ML BAG 100 ML IV SCH (17:00)
[2024-10-14] MEDS: CefTRIAXone/D5W-Rocephin 1gm 50 ML IV SCH (17:30)
[2024-10-14 18:00] VITALS: BP 92/61; PULSE 71; RESP 18; TEMP 98; O2SAT 97
[2024-10-14 18:01] VITALS: RESP 16; O2SAT 99
[2024-10-14 18:05] VITALS: BP 104/54; PULSE 72; RESP 16; TEMP 98.4; O2SAT 99
[2024-10-14 18:05] LABS: PHOSPHORUS 3.4 MG/DL (2.3-4.5); PRO BRAIN NATRIURETIC PEPTIDE 241.0 PG/ML (0-125)
--- NOTE | 2024-10-14 19:05 | CARDIOLOGY REPORT ---
APPROVED REPORT EXAM: Comprehensive 2D, Doppler, and color-flow Echocardiogram. Patient Location: 302 Blood Pressure: 94/61 mmHg Heart Rate: 66 bpm Indications Congestive Heart Failure GMAT INSTRUCTOR: Ike Smith MD Previous ECHO Unavailable 2D Dimensions LA Diam3.6 cm IVSd 0.6 (0.7-1.1cm) LVDd 4.3 cm PWd 1.0 (0.7-1.1cm) IVSs 1.4 (0.8-1.2cm) LVDs 2.0 (2.5-4.0cm) PWs 1.5 (0.8-1.2cm) LVOT Diameter 1.86 (1.8-2.4cm) LVEF(%) 85.1 (>50%) Ao Asc Diam.2.90 cm IVC 12.16 mmFS (%) 54.0 % SV 70.4 ml CO 4.6 L/min M-Mode Dimensions Left Atrium(MM) 3.78 (2.5-4.0cm) Aortic Root 2.63 (2.2-3.7cm) Aortic Cusp Exc 1.70 (1.5-2.0cm) MV EPSS 0.2 (<0.5cm) Aortic Valve AoV Peak Lavell. 276.6 cm/s AoV VTI 53.8 cm AO Peak GR. 30.6 mmHg AO Mean GR. 13 mmHg LVOT VTI 41.31 cm LVOT Peak Lavell. 176.4 cm/s RASHMI(VTI)/BSA 2.07 cm2/m2 RASHMI (VTI) 2.07 cm2 Mitral Valve MV E Velocity 83.2 cm/s MV Peak Gr. 4 mmHg MV DECEL TIME 424 ms MV A Velocity 128.9 cm/s MV PHT 76 ms E/A Ratio 0.6 MVA (PHT) 2.89 cm2 MV VMax99.3 cm/s TDI Lateral E' P. V11.05 cm/s E/Lateral E' 7.5 Tricuspid Valve TR P. Velocity 249 cm/s RAP ESTIMATE 10 mmHg TR Peak Gr. 25 mmHg RVSP 35 mmHg LEFT VENTRICLE Normal LV size and wall thickness. Overall systolic function is hyperdynamic. Intra-cavitary gradien t is present with resting gradient of 84 mmHG increasing to 114.6 mmHg with valsalva. LVEF is 85%. RIGHT VENTRICLE RV is normal size and function. Elevated right heart presssures with an RVSP of 35 mmHg. ATRIA The left atrium size is normal. AORTIC VALVE Trileaflet AV appears mildly sclerotic and openes well without stenosis. RASHMI is 2.08 cmsq. Gradients are measured at 31 / 13 mmHg. Peak velocity is measured at 2.77 m/sec. Increased velocities present across the LVOT/AV due to hyperdynamic function and systolic anterior motion (KANIDS) of the mitral valv e. Subaortic resting velocity is estimated at 4.51 m/sec increasing to 5.35 m/sec with valsalva. No insufficiency. MITRAL VALVE Mitral valve leaflets are thickened with mild annular calcification. Posterior leaflet is mildly prol apsed. Systolic anterior motion (KANDIS) present with hemodynamic compromise (see LV and AV for details) . TRICUSPID VALVE The tricuspid valve is normal in structure with trace regurgitation. PULMONIC VALVE Pulmonic valve is grossly normal in structure with trace insufficiency. GREAT VESSELS The aortic root is normal in size. The ascending aorta is normal in size. The IVC is normal in size a nd collapses >50% with inspiration. PERICARDIUM Trace circumferential pericardial effusion without hemodynamic compromise. Anterior epicardial fat pa d is present.. Other Information Study Quality: Adequate Conclusion Normal LV size and wall thickness. Overall systolic function is hyperdynamic. Intra-cavitary gradient is present with resting gradient of 84 mmHG increasing to 114.6 mmHg with valsalva. LVEF is 85%. RV is normal size and function. Elevated right heart presssures with an RVSP of 35 mmHg. The left atrium size is normal. Trileaflet AV appears mildly sclerotic and openes well without stenosis. RASHMI is 2.08 cmsq. Gradients are measured at 31 / 13 mmHg. Peak velocity is measured at 2.77 m/sec. Increased velocities prese nt across the LVOT/AV due to hyperdynamic function and systolic anterior motion (KANDIS) of the mitral v alve. Subaortic resting velocity is estimated at 4.51 m/sec increasing to 5.35 m/sec with valsalva. No insufficiency. Mitral valve leaflets are thickened with mild annular calcification. Posterior leaflet is mildly pro lapsed. Systolic anterior motion (KANDIS) present with hemodynamic compromise (see LV and AV for detai ls). The tricuspid valve is normal in structure with trace regurgitation. Pulmonic valve is grossly normal in structure with trace insufficiency. Trace circumferential pericardial effusion without hemodynamic compromise. Anterior epicardial fat p ad is present..
[2024-10-14 20:00] VITALS: RESP 18; O2SAT 97
[2024-10-14] MEDS: K and/or MAG REPLACEMENT MC SCH (20:00)
[2024-10-14] MEDS: docusate sod 100mg capsule PO SCH (21:08)
[2024-10-14 22:00] VITALS: BP 99/58; PULSE 67; RESP 19; TEMP 97.4; O2SAT 98
[2024-10-15] VITALS (27 sets, daily range): BP systolic 80–117; BP diastolic 45–67; PULSE 55–68; RESP 10–19; TEMP 91–98.3; O2SAT 9–100
[2024-10-15 05:16] LABS: MEAN PLATELET VOLUME 7.1 FL (7.4-10.4); RED CELL DISTRIBUTION WIDTH 18.6 % (11.5-14.5)
[2024-10-15 06:16] LABS: CREATININE 0.45 MG/DL (0.40-0.90); TOTAL CARBON DIOXIDE 24.1 MMOL/L (24-32); eCRCL 92 ML/MIN; eGFR > 90 ML/MIN
[2024-10-15 06:17] LABS: CHOL/HDL RATIO 3.1 (0.00-4.99); LDL CHOLESTEROL 93 MG/DL (50-100)
[2024-10-15 08:23] LABS: PLATELET ESTIMATE NORMAL
[2024-10-15] MEDS ORDERED: fentaNYL/PF 50MCG/1 ML 2ML syringe ONE (10:20)
[2024-10-15] MEDS ORDERED: LIDOcaine 2% Viscous 15ml cup ONE (10:21)
[2024-10-15] MEDS ORDERED: MIDAZolam 1 MG/ML 5ML VIAL ONE (10:21)
[2024-10-15] MEDS: ringers solution, lacted 1,000 ML IV ONE (13:36)
--- NOTE | 2024-10-15 18:16 | PROGRESS NOTE- Residence ---
Progress Note - Resident Providers to CC Resident Creating Document: VITO VERGARA, ANDERS ~ Antibiotic Timeout Antibiotic Ordered?: Yes Subjective Patient was seen and examined at bedside. She is not in apparent distress. She has been chronically constipated, but she denied abdominal pain. Objective Vital Signs Date Time Temp Pulse Resp B/P (MAP) Pulse Ox O2 Delivery O2 Flow Rate FiO2 10/15/24 16:00 97.7 60 16 98/60 (73) 95 Room Air 10/15/24 12:40 0.0 General: Alert, Awake,Oriented to time, person and place, not distressed HEENT: Normocephalic, PERRLA, Pale conjunctiva Neck: Supple, trachea midline, no JVD Chest: Clear to auscultation bilaterally Cardiovascular: RRR, S1&S2 Abdomen: soft, no tenderness, no organomegaly, bowel sounds heard Extremities: No cyanosis/clubbing/or edema Central Nervous System: CN II-XII intact, no focal deficits Musculoskeletal: No paraspinal muscle tenderness, no muscle spasm Skin: Warm and intact Result Diagram: 10/15/24 0505 10/15/24 0505 Coagulation Studies Laboratory Tests Test 10/14/24 10:49 Prothrombin Time 9.8 SECONDS (9.0-12.0) INR International Normalized Ratio 1.0 INR Activated Partial Thromboplast Time 25 SECONDS (22-32) Coagulation Comments Assessment Assessment EGD did not show any evidence of bleeding. It showed normal esophagus, stomach, duodenal bulb and second portion of the duodenum. Her stomach was biopsied. Hb dropped from 8.9 to 7.6 Hct dropped from 26.4 to 22 MCV-95.1 Abdomen/Pelvis CT-10/14/24 IMPRESSION: Moderate volume diffuse colonic stool. Plan Plan Monitor H & H Blood transfusion if Hb drops below 7 Will await results of biopsy Continue i.v NaCl 1000 ml @ 10ml/hr Q10h Continue docusate sodium 100 mg PO BID Continue Pantoprazole sodium 100 ml @ 20 ml/hr Q5h Vito Vergara Internal Medicine Resident, PGY-1 Date of Service: Oct 15, 2024 Billing Provider: OLGA LIDIA TRAORE MD, PREETHI, ANDERS Oct 15, 2024 18:16
--- NOTE | 2024-10-15 18:46 | PROGRESS NOTE ---
Daily Progress Note Providers to CC Feels better today, ready to go to EGD procedure ~ Central Line/PICC still needed: No Sykes-Non Protocol Sykes Indications Met/Not Met: F/C Indications Not Met Antibiotic Timeout Antibiotic Ordered?: Yes MRSA Education MRSA Education Provided to pt: Yes Subjective As above Objective Vital Signs Date Time Temp Pulse Resp B/P (MAP) Pulse Ox O2 Delivery O2 Flow Rate FiO2 10/15/24 16:00 97.7 60 16 98/60 (73) 95 Room Air 10/15/24 12:40 0.0 Vital signs, stable ,afebrile. Pulse Oximetry reflects adequate oxygenation. General: well developed, well nourished. Awake , alert, and oriented x4, resting comfortably in the bed, in no acute distress . Skin: Warm, dry, no pallor, no rash or petechiae. HEENT: Atraumatic, normocephalic, EOMI, anicteric sclera B; pink conjunctiva; PERRLA, normal oropharynx, moist oral and nasal mucosa. Tympanic membrane , nose , throat clear. Neck: Trachea midline. Supple, full range of motion, no JVD, bruit , hepatojugular reflex , lymphadenopathy or masses, or other lesions Cardiac: Regular rhythm, regular rate no murmurs, rubs, or gallops. Normal S1 and S2, no S3 noticed. PMI is normal. Respiratory: Equal breath sounds bilaterally, no tachypnea; lungs clear to auscultation bilaterally, no wheezing ,rub or rales, or crackles. Chest wall is symmetric and without deformity. No signs of trauma. Chest wall is nontender. No signs of respiratory distress. Resonance is normal upon percussion bilaterally. Gastrointestinal: Abdomen symmetric, non-distended, soft, non-tender, normal bowel sounds x4 quadrant, normoactive, no hepatosplenomegaly , no masses , no bruit, no flank pain bilaterally. No voluntary guarding, rebound, or rigidity. No tenderness to percussion. No pulsatile masses. Equal femoral pulses. No Farfan's sign or McBurney point tenderness. Back; no CVA tenderness bilaterally, no deformities. Neck and back are without deformity as well. No tenderness noted on palpation of the spinous processes. Spinous processes are midline. Cervical, thoracic, and lumbar paraspinal muscles are not tender and are without spasm. Musculoskeletal: Extremities, normal range of motion, non-tender, muscle strength 5/5 x 4. Negative Homans signs bilaterally on lower extremity. Distal pulses full symmetrical, no clubbing, cyanosis , edema. Neurological: Speech is clear, alert, and oriented x 4. No motor or sensory deficit, deep tendon reflexes normal, cerebellar intact. Cranial nerves II-XII intact. Psych: Alert and or appropriate, normal affect. Vascular: Good distal pulses, which are equal x4; capillary refill less than 2 seconds. Lymphatic, no lymphadenopathy. Result Diagram: 10/15/24 0505 10/15/24 0505 Coagulation Studies Laboratory Tests Test 10/14/24 10:49 Prothrombin Time 9.8 SECONDS (9.0-12.0) INR International Normalized Ratio 1.0 INR Activated Partial Thromboplast Time 25 SECONDS (22-32) Coagulation Comments Problem\Assessment\Plan Assessment Upper GI bleeding, acute Melena Post hemorrhagic anemia hemoglobin 5.5 on admission, 7.6 now Hypovolemia Urinary tract infection History of chronic anemia on treatment with iron History of GI bleeding, and colon polyps x2 Chronic constipation in exacerbation Hypoalbuminemia Pericardial effusion small Cardiomegaly Plan IV fluids, keep patient euvolemic well hydrated, IV antibiotics Blood transfusion p.r.n. Additional lab work pending IV Protonix infusion Echocardiography pending PT evaluation and treatment Patient was evaluated by GI doctor, EGD completed today I reconciled home medications DVT gastropathy prophylaxis addressed Sepsis Screening Reassessment Date: Oct 15, 2024 Date of Service: Oct 15, 2024 Billing Provider: MU SPENCER MD Common Visit Codes: [id number] INP/OBS CARE(HIGH) MU SPENCER MD Oct 15, 2024 18:45
[2024-10-16 00:17] VITALS: BP 88/52; PULSE 74; RESP 13; TEMP 98.1
[2024-10-16 01:17] VITALS: BP 97/59; PULSE 58; RESP 10; TEMP 98.3
[2024-10-16 02:00] VITALS: BP 97/54; PULSE 61; RESP 14; TEMP 97.9; O2SAT 98
[2024-10-16 02:25] VITALS: BP 97/54; PULSE 61; RESP 14; TEMP 97.9
[2024-10-16 06:00] VITALS: BP 104/61; PULSE 63; RESP 12; TEMP 97.7; O2SAT 97
[2024-10-16 06:29] LABS: MEAN PLATELET VOLUME 7.1 FL (7.4-10.4); RED CELL DISTRIBUTION WIDTH 20.2 % (11.5-14.5)
[2024-10-16 06:44] LABS: CREATININE 0.57 MG/DL (0.40-0.90); TOTAL CARBON DIOXIDE 25.4 MMOL/L (24-32); eCRCL 73 ML/MIN; eGFR > 90 ML/MIN
[2024-10-16 06:58] LABS: PLATELET ESTIMATE NORMAL
[2024-10-16 08:00] VITALS: RESP 18; O2SAT 98
--- NOTE | 2024-10-16 08:27 | PROGRESS NOTE- Residence ---
Progress Note - Resident Providers to CC Resident Creating Document: VITO VERGARA RES ~ Antibiotic Timeout Antibiotic Ordered?: Yes Subjective Patient was seen and examined at bedside. She is not in apparent distress. She has been chronically constipated, but she denied abdominal pain. She did not pass stool today yet but stated that she passed small amount of dark stool yesterday. She denied fever and chills. Objective Vital Signs Date Time Temp Pulse Resp B/P (MAP) Pulse Ox O2 Delivery O2 Flow Rate FiO2 10/16/24 06:00 97.7 63 12 104/61 (75) 97 Room Air 10/15/24 12:40 0.0 General: Alert, Awake,Oriented to time, person and place, not distressed HEENT: Normocephalic, PERRLA, Pale conjunctiva Neck: Supple, trachea midline, no JVD Chest: Clear to auscultation bilaterally Cardiovascular: RRR, S1&S2 Abdomen: soft, no tenderness, no organomegaly, bowel sounds heard Extremities: No cyanosis/clubbing/or edema Central Nervous System: CN II-XII intact, no focal deficits Musculoskeletal: No paraspinal muscle tenderness, no muscle spasm Skin: Warm and intact Result Diagram: 10/16/24 0516 10/16/24 0516 Coagulation Studies Laboratory Tests Test 10/14/24 10:49 Prothrombin Time 9.8 SECONDS (9.0-12.0) INR International Normalized Ratio 1.0 INR Activated Partial Thromboplast Time 25 SECONDS (22-32) Coagulation Comments Assessment Assessment EGD was normal, Await results of stomach biopsy. Hb trended up from 7.6 to 8.9 Hct trended up 22 to 26 MCV-93 Patient was given 1 unit of PRBC transfusion Abdomen/Pelvis CT-10/14/24 IMPRESSION: Moderate volume diffuse colonic stool. Plan Plan Monitor H &H Blood transfusion if Hb drops below 7 Will await results of biopsy Continue i.v NaCl 1000 ml @ 10ml/hr Q10h Continue docusate sodium 100 mg PO BID Continue Pantoprazole sodium 100 ml @ 20 ml/hr Q5h Vito Vergara Internal Medicine Resident, PGY-1 Date of Service: Oct 16, 2024 Billing Provider: OLGA LIDIA TRAORE MD, PREETHI, ANDERS Oct 16, 2024 08:27
--- NOTE | 2024-10-16 19:14 | DISCHARGE SUMMARY ---
Discharge Summary Providers to CC Feels better today, asking to be discharged home ~ Discharge Summary Assessment Upper GI bleeding, acute Melena Post hemorrhagic anemia hemoglobin 5.5 on admission, 8.9 now Hypovolemia Urinary tract infection History of chronic anemia on treatment with iron History of GI bleeding, and colon polyps x2 Chronic constipation in exacerbation Hypoalbuminemia Pericardial effusion small Cardiomegaly Admission Diagnosis: GI Bleed Admission Diagnosis Comment: Upper GI bleeding, acute Melena Post hemorrhagic anemia hemoglobin 5.5 on admission, 8.9 now Hypovolemia Urinary tract infection History of chronic anemia on treatment with iron History of GI bleeding, and colon polyps x2 Chronic constipation in exacerbation Hypoalbuminemia Pericardial effusion small Cardiomegaly Hospital Course DATE OF ADMISSION: October 14, 2024 DATE OF DISCHARGE: October 16, 2024 Discharge Diagnosis\Comment: Upper GI bleeding, acute Melena Post hemorrhagic anemia hemoglobin 5.5 on admission, 8.9 now Hypovolemia Urinary tract infection History of chronic anemia on treatment with iron History of GI bleeding, and colon polyps x2 Chronic constipation in exacerbation Hypoalbuminemia Pericardial effusion small Cardiomegaly Operations\Procedures: EGD Consultants: GI doctor Complications: Non Condition on DC: Stable Discharge Summary: This is a 74 yr old patient with a previous hopitalization on September 06 for melena, history of mitral valve prolapse 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 She states that she has been having dark tarry sticky stools and has required many PRBC transfusions for anemia. She has been on Protonix and iron tablets for the past month and has been taking electrolyte drinks.She reports taking Hydrochloric acid supplements with food since 3 months which was recommended by her dental appliance repairer as she was told that she hasn't been absorbing food properly.She denies having any abdominal pain. She reports having good appetite but lost 6 pounds in the last month and she attributes it to GI blood loss.She denies having fever and chills, nausea and vomiting, hematemesis and hematochezia.She claims that she had endoscopy and colonoscopy in her previous hospitalization in September but there was no evidence of active bleeding.She reported she had similar issues in 2021 and at that time she was having NSAIDs and had a colonoscopy endoscopy and a capsule endoscopy. She claims that she started getting GI bleed after using ibuprofen in 2021 for shoulder pain. In emergency department she was evaluated by physician and GI doctor, diagnosed with upper GI bleed, post hemorrhagic anemia, hemoglobin 8.9, and hemoglobin on admission 5.5, transfuse 2 units of blood, decision was made to admit patient for further evaluation and treatment. Patient scheduled for gastroscopy in the morning. After admission patient was extensively evaluated treated gastroscopy was done, gastritis found on exam, today she feels better, asking to be discharged home, follow-up PCP and GI doctor in the morning, return to emergency department if condition worsens, today on physical exam Vital signs, stable ,afebrile. Pulse Oximetry reflects adequate oxygenation. General: well developed, well nourished. Awake , alert, and oriented x4, resting comfortably in the bed, in no acute distress . Skin: Warm, dry, no pallor, no rash or petechiae. HEENT: Atraumatic, normocephalic, EOMI, anicteric sclera B; pink conjunctiva; PERRLA, normal oropharynx, moist oral and nasal mucosa. Tympanic membrane , nose , throat clear. Neck: Trachea midline. Supple, full range of motion, no JVD, bruit , hepatojugular reflex , lymphadenopathy or masses, or other lesions Cardiac: Regular rhythm, regular rate no murmurs, rubs, or gallops. Normal S1 and S2, no S3 noticed. PMI is normal. Respiratory: Equal breath sounds bilaterally, no tachypnea; lungs clear to auscultation bilaterally, no wheezing ,rub or rales, or crackles. Chest wall is symmetric and without deformity. No signs of trauma. Chest wall is nontender. No signs of respiratory distress. Resonance is normal upon percussion bilaterally. Gastrointestinal: Abdomen symmetric, non-distended, soft, non-tender, normal bowel sounds x4 quadrant, normoactive, no hepatosplenomegaly , no masses , no bruit, no flank pain bilaterally. No voluntary guarding, rebound, or rigidity. No tenderness to percussion. No pulsatile masses. Equal femoral pulses. No Farfan's sign or McBurney point tenderness. Back; no CVA tenderness bilaterally, no deformities. Neck and back are without deformity as well. No tenderness noted on palpation of the spinous processes. Spinous processes are midline. Cervical, thoracic, and lumbar paraspinal muscles are not tender and are without spasm. Musculoskeletal: Extremities, normal range of motion, non-tender, muscle strength 5/5 x 4. Negative Homans signs bilaterally on lower extremity. Distal pulses full symmetrical, no clubbing, cyanosis , edema. Neurological: Speech is clear, alert, and oriented x 4. No motor or sensory deficit, deep tendon reflexes normal, cerebellar intact. Cranial nerves II-XII intact. Psych: Alert and or appropriate, normal affect. Vascular: Good distal pulses, which are equal x4; capillary refill less than 2 seconds. Lymphatic, no lymphadenopathy. *Problems/Diagnosis: (1) Upper GI hemorrhage Status: Acute (2) Anemia Status: Acute Total Time Spent on D/C: > 30 Minutes Date of Service: Oct 16, 2024 Billing Provider: MU SPENCER MD Common Visit Codes: [id number] DISCH DAY >30min MU SPENCER MD Oct 16, 2024 19:14
== END 2024-10-16 11:03 | disposition home or self-care (01) | DRG 378 ==
LOC: ER 10:27 → ED HOLD 12:39 → PCU 3S 16:13
PROVIDERS: ADMIT Family Medicine; ATTEND Family Medicine
PROC: BW251ZZ Computerized Tomography (CT Scan) of Chest, Abdomen and Pelvis using Low Osmolar Contrast (ICD-10-PCS; 2024-10-14)
PROC: 30233N1 Transfusion of Nonautologous Red Blood Cells into Peripheral Vein, Percutaneous Approach (ICD-10-PCS; principal; 2024-10-15)
PROC: 0DB68ZX Excision of Stomach, Via Natural or Artificial Opening Endoscopic, Diagnostic (ICD-10-PCS; 2024-10-15)
DX: K29.71 Gastritis, unspecified, with bleeding (principal); I31.39 Other pericardial effusion (noninflammatory); N39.0 Urinary tract infection, site not specified; D50.0 Iron deficiency anemia secondary to blood loss (chronic); E86.1 Hypovolemia; E88.09 Other disorders of plasma-protein metabolism, not elsewhere classified; K59.09 Other constipation; Z86.0100 Personal history of colon polyps, unspecified; Z88.8 Allergy status to other drugs, medicaments and biological substances
CPT/HCPCS: 36415; 36430; 43239; 71250; 74176; 80053; 80061; 81001; 83036; 83605; 83735; 83880; 84100; 84484; 85008; 85025; 85610; 85730; 86885; 86900; 86901; 86920; 87040; 87077; 87081; 87088; 87186; 88305; 88342; 93005; 93306; 96365; 96376; 99152; 99285; A4620; G0378; J0696; J2250; J2470; J3010; J7030; J7040; J7120; P9016